=== PATIENT | female | born 1960 | race African-American/Black ===

== ENCOUNTER 2019-06-10 11:27 | Emergency (ER) | payer OTHER ==
[2019-06-10 11:37] VITALS: BMI 18.0
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
[2019-06-10 13:02] LABS: BASO % 1.3 % (0-2.0); EOS % 0.5 % (0-4.5); HEMATOCRIT 43.1 % (32.4-45.2); HEMOGLOBIN 14.6 GM/dL (10.7-15.3); LYMPH % 32.9 % (8-40); MCH 29.7 pg (25.7-33.7); MEAN CELL VOLUME 87.5 fl (80-96); MEAN PLT VOLUME 7.4 fl (7.5-11.1); NEUT % 60.3 % (42.8-82.8); PLATELET COUNT 271 K/MM3 (134-434); RBC 4.93 M/mm3 (3.60-5.2); RDW 13.4 % (11.6-15.6); WHITE BLOOD COUNT 5.1 K/mm3 (4.0-10.0)
[2019-06-10 13:05] LABS: EPI CELLS 2.9 /HPF (0-5/HPF); HYALINE CASTS 3 /lpf (0-8); PH,URINE 5.5 (5.0-8.0); URINE APPEARANCE CLEAR; URINE BACTERIA 16.9 /hpf (NEGATIVE); URINE BILIRUBIN NEGATIVE (NEGATIVE); URINE COLOR YELLOW; URINE GLUCOSE (UA) NEGATIVE (NEGATIVE); URINE KETONE NEGATIVE (NEGATIVE); URINE LEUK ESTERASE TRACE (NEGATIVE); URINE NITRITE NEGATIVE (NEGATIVE); URINE PROTEIN NEGATIVE (NEGATIVE); URINE RBC 3 /hpf (0-4); URINE UROBILINOGEN 0.2 mg/dL (0.2-1.0); URINE WBC 1 /hpf (0-5)
[2019-06-10 13:27] LABS: ALBUMIN 4.4 g/dl (3.4-5.0); BILIRUBIN,TOTAL 0.5 mg/dL (0.2-1); BLOOD UREA NITROGEN 8.3 mg/dL (7-18); CALCIUM 9.8 mg/dL (8.5-10.1); CREATININE 0.8 mg/dL (0.55-1.3); POTASSIUM 4.2 mmol/L (3.5-5.1); TOT PROT 8.5 g/dl (6.4-8.2)
[2019-06-10 13:29] LABS: COCAINE, UR NEGATIVE ng/ml (CUTOFF=300); METHADONE, UR NEGATIVE ng/ml (CUTOFF=300); OPIATES, URI NEGATIVE ng/ml (CUTOFF=300); PHENCYCLIDINE,URINE NEGATIVE ng/ml (CUTOFF=25); URINE AMPHETAMINES NEGATIVE ng/ml (CUTOFF=500); URINE BARBITURATES NEGATIVE ng/ml (CUTOFF=200); URINE BENZODIAZEPINES NEGATIVE ng/ml (CUTOFF=200)
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
--- NOTE | 2019-06-10 14:52 | EKG ---
Test Reason : Blood Pressure : / mmHG Vent. Rate : 094 BPM Atrial Rate : 094 BPM P-R Int : 182 ms QRS Dur : 080 ms QT Int : 368 ms P-R-T Axes : 050 -18 013 degrees QTc Int : 460 ms NORMAL SINUS RHYTHM LEFT ATRIAL ENLARGEMENT INCOMPLETE RBBB BORDERLINE ECG NO PREVIOUS ECGS AVAILABLE Confirmed by MD MARÍA, YUE ([id number]) on 06/10/2019 2:52:07 PM Referred By: Confirmed By:YUE DANIEL MD
[2019-06-10 17:26] VITALS: BP 142/91; PULSE 80; TEMP 97.9
== END 2019-06-10 17:28 | disposition home or self-care (01) ==
LOC: JER 11:27 → JERFT 11:27 → JER 17:28
DX: F22 Delusional disorders (principal); H92.01 Otalgia, right ear
CPT/HCPCS: 36415; 70450-TC; 71045-TC-FY; 80053; 80307; 81003; 84443; 84484; 85025; 87086; 93005; 93010; 99284-25